=== PATIENT | female | born 1960 | race Caucasian/White ===

== ENCOUNTER 2021-09-15 15:18 | Observation (INO) | payer MEDICARE, MEDICAID ==
[~2021-09-15] VITALS: Ht 154.9 cm; Wt 57.7 kg
--- NOTE | 2021-09-15 15:40 | NUR ---
PATIENT TO ROOM VIA EMS STRETCHER.
[2021-09-15 16:29] LABS: HEMATOCRIT 34.7 % (37.0-47.0); HEMOGLOBIN 10.6 g/dl (12.0-16.0); IMMATURE GRANULOCYTES 0.5 % (0.0-5.0); MEAN CELL VOLUME 80.9 fL CALC (80.0-100.0); MEAN CORPUSCULAR HGB 24.7 pG CALC (26.0-32.0); MEAN CORPUSCULAR HGB CONC 30.5 g/dL CAL (32.0-36.0); NEUT# 10.3 thou/uL (2.00-7.15); RED BLOOD COUNT 4.29 mill/uL (4.20-5.60); RED CELL DISTRI WIDTH 20.4 % (11.5-15.5)
[2021-09-15] MEDS ORDERED: NEURONTIN100 MG PO (16:32)
[2021-09-15] MEDS ORDERED: LISINOPRIL20 M1 PO (16:32)
[2021-09-15] MEDS ORDERED: HYDROXYZINE HYD25 MG PO (16:33)
[2021-09-15] MEDS ORDERED: LEXAPRO20 MG PO (16:34)
[2021-09-15] MEDS ORDERED: PROAIR HFA IN (16:34)
[2021-09-15] MEDS ORDERED: LIPITOR20 M1 PO (16:34)
[2021-09-15] MEDS ORDERED: ALOPHEN5 MG PO (16:34)
[2021-09-15] MEDS ORDERED: CREON1 CAP PO (16:35)
[2021-09-15] MEDS ORDERED: LORAZEPAM0.5 MG PO (16:36)
[2021-09-15] MEDS ORDERED: OXYCODONE5 M1 PO (16:36)
--- NOTE | 2021-09-15 16:54 | NUR ---
SITTING ON EDGE OF STRETCHER, REPORTS ABD PAIN 10/10. C/O NAUSEA
[2021-09-15 16:55] LABS: ALBUMIN 4.3 g/dL (3.2-5.0); ALKALINE PHOSPHATASE 154 u/l (38-126); ANION GAP 20 (6-22 (CALC)); BILIRUBIN, TOTAL 0.3 mg/dL (0.0-1.4); BUN 9 mg/dL (7-17); BUN/CREATININE RATIO 13 (12-20 (CALC)); CARBON DIOXIDE 20 mmol/l (22-30); CHLORIDE 105 mmol/l (95-108); CREATININE 0.7 mg/dL (0.5-1.0); GFR > 60 ML/MIN (>=60 (CALC)); GFR FOR AFR.AMER. > 60 ML/MIN (>=60 (CALC)); POTASSIUM 4.4 mmol/l (3.5-5.1); SGOT/AST 28 u/l (14-36); SODIUM 140 mmol/l (137-146); TOTAL PROTEIN 8.1 g/dL (6.3-8.2)
[2021-09-15 17:03] LABS: LIPASE 5150 u/l (23-300)
--- NOTE | 2021-09-15 17:27 | NUR ---
MEDICATED PER MAR FOR C/O 05/02 ABD PAIN
--- NOTE | 2021-09-15 18:54 | NUR ---
REPORT GIVEN TO REMI RONQUILLO
--- NOTE | 2021-09-15 19:09 | NUR ---
sm amt of clear liquid gastric content emesis medicated for n/v and pain in abd
--- NOTE | 2021-09-15 20:40 | NUR ---
PT TAKES PO MED WITH WATER AND RETAINS NO N/V NO C/O PAIN
--- NOTE | 2021-09-15 21:30 | NUR ---
NO N/V W/P/D SKIN SR NO ECTOPY
--- NOTE | 2021-09-15 22:40 | NUR ---
NO N/V ASLEEP IN NAD W/P/D SKIN
--- NOTE | 2021-09-15 23:32 | NUR ---
W/D SKIN NO N/V IN NAD
--- NOTE | 2021-09-16 00:50 | NUR ---
PHONE REPORT TO NURSE SAAD
--- NOTE | 2021-09-16 00:55 | NUR ---
PT TRANSPORTED TO [facility] VIA IN STABLE COMDITION
[2021-09-16 01:16] VITALS: BP 173/93
--- NOTE | 2021-09-16 02:00 | NUR ---
PATIENT ADMITTED FROM ER VIA WHEELCHAIR WITH ER STAFF IN ATTENDANCE. PATIENT IS ABLE TO TRANSFER TO BED. PATIENT ADMITTED FOR ABD PAIN, CHRONIC PANCREATITIS AND VOMITTING. AWAKE BUT DROWSY-WAS MEDICATED IN ER FOR PAIN AND FOR ANXIETY. PATIENT STATES THAT SHE RAN OUT OF HER ATIVAN ON MONDAY AND SO SHE STARTED DRINKING AND PROBABLY DRANK TOO MUCH-ONCE SHE STARTS SHE CAN'T STOP PER PATIENT-THEN MONDAY SHE STARTED HAVING N/V AND ABD PAIN. STAYING WITH HER DAUGHTER AND CAME TO THE HOSPITAL BY EMS. NO ALLERGIES. ON CLEAR LIQUIDS ONLY. ABD IS SOFT WITH ACTIVE BS-LAST BM WAS YESTERDAY 09/15. LUNGS ARE CLEAR. IVF NS HUNG AND INFUSING VIA LEFT HAND SITE ORDERED. ATTEMPT TO ORIENT PATIENT TO ROOM AND SURROUNDINGS. INSTRUCTED ON USE OF NURSE CALL LI GHT SYSTEM AND TV REMOTE. SAFETY PRECAUTIONS REINFORCED. CALL LIGHT IN REACH. WILL CONT TO MONITOR.
--- NOTE | 2021-09-16 04:23 | NUR ---
PATIENT RESTING IN BED AT THIS TIME POSITIONED ON RIGHT SIDE-EYES CLOSED, RESP EVEN AND UNLABORED. IVF PATENT AND INFUSING ORDERED VIA LEFT HAND SIDE. TELE MONITOR REMAINS IN PLACE. CALL LIGHT IN REACH. WILL CONT TO MONITOR.
[2021-09-16 04:57] VITALS: BP 145/81
[2021-09-16 06:16] LABS: MAGNESIUM 1.8 mg/dL (1.6-2.3)
[2021-09-16 07:05] VITALS: BP 163/79
--- NOTE | 2021-09-16 07:05 | NUR ---
REPORT REC FROM Saundra RESENDIZ RN
--- NOTE | 2021-09-16 07:20 | NUR ---
PT SITTING IN BED. A&O X3. NO DISTRESS NOTED. PT C/O OF NAUSEA. REPORTS HX OF ETOH; LAST DRINK ON MONDAY; ALSO REPORTS RUNNING OUT OF HOME MEDICATIONS. DOES ADMIT TO PAST HX OF SEIZURES WHEN SHE RAN OUT OF HER PAIN MEDICATIONS; DOES NOT REPORT DAILY USE OF ANTI-SEIZURE MEDICATION; BED RAILS PADDED FOR SAFETY. CLEAR BREATH SOUNDS UPON AUSCULTATION. ACTIVE BOWEL SOUNDS UPON AUSCULTATION.IV HEALTHY AND PATENT, GOLD NIB GRINDER IN PLACE. ASSESSMENT COMPLETED. DISCUSSED POC. CALL LIGHT WITHIN REACH.
--- NOTE | 2021-09-16 10:21 | NUR ---
DR EARLY AND Trae WALLS ANIMAL PATHOLOGIST AT BEDSIDE DISCUSSING POC
[2021-09-16 11:11] LABS: URINE BILIRUBIN - DIPSTICK NEGATIVE (NEGATIVE); URINE BLOOD DIPSTICK NEGATIVE (NEGATIVE); URINE COLOR YELLOW; URINE GLUCOSE - DIPSTICK NEGATIVE (NEGATIVE); URINE KETONE 15 mg/dL (NEGATIVE); URINE LEUK ESTERASE NEGATIVE (NEGATIVE); URINE PH 5.5 (4.5-8.0); URINE PROTEIN - DIPSTICK NEGATIVE (NEG-TRACE); URINE SPECIFIC GRAVITY >=1.030; URINE UROBILINOGEN - DIPSTICK 0.2 E.U./dL (0.2)
[2021-09-16 11:15] VITALS: BP 120/78
[2021-09-16 11:27] LABS: URINE NITRITE - DIPSTICK NEGATIVE (Negative)
[2021-09-16] MEDS ORDERED: GABAPENTIN100 MG PO (11:34)
[2021-09-16] MEDS ORDERED: ADVAIR DISK1 IN (11:36)
[2021-09-16] MEDS ORDERED: CLARITIN10 M2 PO (11:37)
[2021-09-16] MEDS ORDERED: ONDANSETRON4 MG PO (11:38)
[2021-09-16] MEDS ORDERED: MULTI FOR HER PO (11:40)
[2021-09-16] MEDS ORDERED: [UNRECOGNIZED DRUG - OTHER] TOP (11:42)
[2021-09-16] MEDS ORDERED: LIDOCAINE TOP (11:42)
--- NOTE | 2021-09-16 12:15 | NUR ---
PT SITTING IN BED. NO DISTRESS NOTED. CALL LIGHT WITHIN REACH.
[2021-09-16 15:40] VITALS: BP 112/66
--- NOTE | 2021-09-16 15:43 | NUR ---
PT SITTING IN BED.PT MEDICATED WITH PRN PAIN MEDICATION FOR PAIN RATED 8/10. PT REPORTS IMPROVEMENT WITH NAUSEA. PT ALSO REQUESTING TO BE ADVANCED IN HER DIET; PRODUCTION GENERALIST NOTIFIED; ORDER OBTAINED FOR ADVANCEMENT TO SOFT DIET. PT UPDATED ON POC. CALL LIGHT WITHIN REACH.
--- NOTE | 2021-09-16 15:58 | NUR ---
Patient is screened for PT intervention and no needs are identified at this time
[2021-09-16 19:00] VITALS: BP 123/60
--- NOTE | 2021-09-16 20:08 | NUR ---
PATIENT SITTING UP IN BED AT THIS TIME-AWAKE ALERT AND ORIENTEDX3. PATIENT WITH TELE MONITOR IN PLACE. IVF NS PATENT AND INFUSING ORDERED VIA LEFT HAND SITE. SITE REMAINS HEALTHY AT THIS TIME. ABD IS SOFT WITH ACTIVE BS. NO BM TODAY BUT IS PASSING GAS PER PATIENT. DENIES ANY DIFFICULTY WITH URINATION. LUNGS CLEAR. NO PERIPHERAL EDEMA NOTED. C/O SHARP ABD PAIN-8/10 ON PAIN SCALE-MEDICATED WITH DILAUDID 0.5MG PO FOR PAIN. SAFETY PRECAUTIOS REINFORCED. CALL LIGHT IN RECH. WILL CONT TO MONITOR.
--- NOTE | 2021-09-16 21:16 | NUR ---
PATIENT MEDICATED FOR NAUSEA WITH ZOFRAN 4MG IVP, MEDICATED WITH ATIVAN FOR ANXIETY. RESTING IN BED WITH IVF PATENT AND INFUSING VIA LEFT HAND. SITE REMAINS HEALTHY WITH GOOD BLOOD RETURN. TELE MONITOR IN PLACE. SAFETY PRECAUTIONS REINFORCED. CALL LIGHT IN REACH. WILL CONT TO MONITOR.
[2021-09-17] VITALS: BP 112/62
--- NOTE | 2021-09-17 | NUR ---
PATIENT IN BED AT THIS TIME WITH EYES CLOSED. RESPS ARE EVEN AND UNLABORED. TELE MONITOR IN PLACE-LAST READING SR-97. IVF PATENT AND INFUSING VIA LEFT HAND AT 150CC/HR. CALL LIGHT IN REACH. WILL CONT TO MONITOR.
[2021-09-17 04:00] VITALS: BP 135/67
--- NOTE | 2021-09-17 04:12 | NUR ---
PATIENT AWAKE AND SITTING UP IN BED. PATIENT MEDICATED FOR PAIN WITH ROXICODONE 5MG PO FOR 7/10 ON PAIN SCALE. IVF NS PATENT AND INFUSING VIA LEFT HAND SITE AT 150CC/HR. SITE REMAINS HEALTHY. TELE MONITOR IN PLACE WITH THE LAST READING SR-90. SAFETY PRECAUTIONS REINFORCED. CALL LIGHT IN REACH. WILL CONT TO MONITOR.
[2021-09-17 06:00] LABS: HEMATOCRIT 32.1 % (37.0-47.0); HEMOGLOBIN 9.4 g/dl (12.0-16.0); MEAN CELL VOLUME 85.1 fL CALC (80.0-100.0); MEAN CORPUSCULAR HGB 24.9 pG CALC (26.0-32.0); MEAN CORPUSCULAR HGB CONC 29.3 g/dL CAL (32.0-36.0); RED BLOOD COUNT 3.77 mill/uL (4.20-5.60)
[2021-09-17 06:19] LABS: ANION GAP 13 (6-22 (CALC)); BUN 6 mg/dL (7-17); BUN/CREATININE RATIO 11 (12-20 (CALC)); CARBON DIOXIDE 23 mmol/l (22-30); CHLORIDE 104 mmol/l (95-108); CREATININE 0.5 mg/dL (0.5-1.0); GFR > 60 ML/MIN (>=60 (CALC)); GFR FOR AFR.AMER. > 60 ML/MIN (>=60 (CALC)); LIPASE 714 u/l (23-300); MAGNESIUM 1.9 mg/dL (1.6-2.3); SODIUM 135 mmol/l (137-146)
--- NOTE | 2021-09-17 06:33 | NUR ---
PATIENT TO ENDO VIA STRETCHER AND PACU STAFF.
[2021-09-17 08:00] VITALS: BP 149/74
--- NOTE | 2021-09-17 08:00 | NUR ---
PT SITTING IN BED EATING BREAKFAST. A&O X3. PT REPORTS TOLERATING SOFT DIET WELL. DENIES ANY NAUSEA. CIWA SCORE OF 4. DOES REPORT ABD PAIN RATED 8/10; MEDICATED WITH PRN DILAUDID. CLEAR BREATH SOUNDS UPON AUSCULTATION. ACTIVE BOWEL SOUNDS X4 QUADRANTS. IV REMAINS HEALTHY AND PATENT WITH IVF INFUSING PER MAR ORDERS.GARDEN CONSULTANT IN PLACE. ASSESSMENT COMPLETED. DISCUSSED POC. CALL LIGHT WITHIN REACH.
[2021-09-17 08:08] VITALS: BP 149/74
--- NOTE | 2021-09-17 09:22 | NUR ---
SPOKE WITH REMI OLEARY AND BESSY LOVE WHO SEPARATELY ACCOUNTED THAT THE WASTE FOR 1 MG OF DILAUDID WAS COMPLETED.
[2021-09-17] MEDS ORDERED: LORAZEPAM0.5 MG PO (10:14)
[2021-09-17] MEDS ORDERED: OXYCODONE5 M1 PO (10:14)
--- NOTE | 2021-09-17 11:50 | NUR ---
PT SITTING ON THE SIDE OF THE BED GETTING CLEANED UP PRIOR TO D/C. IV FOUND DISLODGED; INTACT. NO OTHER NEEDS AT THIS TIME. CALL LIGHT WITHIN REACH
--- NOTE | 2021-09-17 12:10 | NUR ---
Discharge instructions given. Patient verbalizes understanding of same. Discharged in stable condition via Wheelchair to Home with staff. All belongings sent with pt.
== END 2021-09-17 12:10 | disposition home or self-care (01) ==
LOC: ED 15:18 → EDBD 15:18 → ED 17:30 → ED-I 17:30 → ED 19:56 → MS2 19:57
PROVIDERS: Emergency Medicine; Nurse Practitioner; ADMIT Internal Medicine; ATTEND Internal Medicine
PROC: 3E0234Z Introduction of Serum, Toxoid and Vaccine into Muscle, Percutaneous Approach (ICD-10-PCS; principal; 2021-09-17)
DX: K85.20 Alcohol induced acute pancreatitis without necrosis or infection (principal); K86.0 Alcohol-induced chronic pancreatitis; F10.10 Alcohol abuse, uncomplicated; I10 Essential (primary) hypertension; E78.5 Hyperlipidemia, unspecified; G40.909 Epilepsy, unspecified, not intractable, without status epilepticus; F41.9 Anxiety disorder, unspecified; F32.A Depression, unspecified; G89.4 Chronic pain syndrome; G62.9 Polyneuropathy, unspecified; F17.210 Nicotine dependence, cigarettes, uncomplicated; Z20.822 Contact with and (suspected) exposure to COVID-19; Z23 Encounter for immunization
CPT/HCPCS: J1650; J2060

== ENCOUNTER 2021-09-26 16:54 | Emergency (ER) | payer MEDICARE, MEDICAID ==
[~2021-09-26] VITALS: Ht 154.9 cm; Wt 56.0 kg
[~2021-09-26 16:54] MED LIST: ADVAIR DISK1 IN; ALOPHEN5 MG PO; CLARITIN10 M2 PO; CREON1 CAP PO; GABAPENTIN100 MG PO; HYDROXYZINE HYD25 MG PO; LEXAPRO20 MG PO; LIDOCAINE TOP; LIPITOR20 M1 PO; LISINOPRIL20 M1 PO; LORAZEPAM0.5 MG PO; MULTI FOR HER PO; NEURONTIN100 MG PO; ONDANSETRON4 MG PO; OXYCODONE5 M1 PO; PROAIR HFA IN; [UNRECOGNIZED DRUG - OTHER] TOP
[2021-09-26 17:48] LABS: HEMOGLOBIN 9.6 g/dl (12.0-16.0); MEAN CELL VOLUME 83.3 fL CALC (80.0-100.0); NEUT# 7.07 thou/uL (2.00-7.15); RED BLOOD COUNT 3.84 mill/uL (4.20-5.60); RED CELL DISTRI WIDTH 20.5 % (11.5-15.5)
[2021-09-26 18:01] LABS: ALBUMIN 3.9 g/dL (3.2-5.0); ALKALINE PHOSPHATASE 132 u/l (38-126); AMYLASE 99 u/l (30-110); ANION GAP 13 (6-22 (CALC)); BILIRUBIN, TOTAL 0.2 mg/dL (0.0-1.4); BUN 10 mg/dL (7-17); BUN/CREATININE RATIO 17 (12-20 (CALC)); CARBON DIOXIDE 25 mmol/l (22-30); CHLORIDE 108 mmol/l (95-108); CREATININE 0.6 mg/dL (0.5-1.0); ETHYL ALCOHOL 255 mg/dl (0-30); GFR > 60 ML/MIN (>=60 (CALC)); GFR FOR AFR.AMER. > 60 ML/MIN (>=60 (CALC)); LIPASE 338 u/l (23-300); MAGNESIUM 1.7 mg/dL (1.6-2.3); SGOT/AST 25 u/l (14-36); SODIUM 141 mmol/l (137-146); TOTAL PROTEIN 7.7 g/dL (6.3-8.2)
[2021-09-26 18:05] LABS: IMMATURE GRANULOCYTES 1.1 % (0.0-5.0)
[2021-09-26 18:07] LABS: ACT PARTIAL THROMBO TIME 23.3 SECONDS (20.0-32.5); PROTHROMBIN TIME 10.3 SECONDS (9.0-12.5)
[2021-09-26 19:48] LABS: URINE BILIRUBIN - DIPSTICK NEGATIVE (NEGATIVE); URINE BLOOD DIPSTICK NEGATIVE (NEGATIVE); URINE COLOR YELLOW; URINE GLUCOSE - DIPSTICK NEGATIVE (NEGATIVE); URINE KETONE NEGATIVE (NEGATIVE); URINE LEUK ESTERASE NEGATIVE (NEGATIVE); URINE PH 6.5 (4.5-8.0); URINE PROTEIN - DIPSTICK NEGATIVE (NEG-TRACE); URINE UROBILINOGEN - DIPSTICK 0.2 E.U./dL (0.2)
[2021-09-26 19:49] LABS: URINE NITRITE - DIPSTICK NEGATIVE (Negative)
[2021-09-27 10:18] VITALS: BP 154/84
== END 2021-09-27 10:23 | disposition home or self-care (01) ==
LOC: ED 16:54
DX: K86.0 Alcohol-induced chronic pancreatitis (principal); F10.129 Alcohol abuse with intoxication, unspecified; G89.4 Chronic pain syndrome; I10 Essential (primary) hypertension; G40.909 Epilepsy, unspecified, not intractable, without status epilepticus; F41.9 Anxiety disorder, unspecified; F32.A Depression, unspecified; F17.210 Nicotine dependence, cigarettes, uncomplicated
CPT/HCPCS: Q9967; S0164